=== PATIENT | male | born 1940 ===

== ENCOUNTER 2024-03-30 18:28 | Inpatient (IN) | payer MEDICARE, OTHER ==
[~2024-03-30] VITALS: Ht 165.1 cm; Wt 70.8 kg
[2024-03-30 18:54] LABS: BASOPHILS ABSOLUTE AUTO 0.06 K/mm3 (0.00-0.23); BASOPHILS PERCENT AUTO 0 % (0-2); EOSINOPHILS ABSOLUTE AUTO 0.15 K/mm3 (0.00-0.68); EOSINOPHILS PERCENT AUTO 1 % (0-6); Hematocrit 37.4 % (37.0-53.0); Hemoglobin 12.3 g/dL (13.5-17.5); IMMATURE GRAN ABSOLUTE AUTO 0.05 K/mm3 (0.00-0.10); IMMATURE GRAN PERCENT AUTO 0 % (0-1); LYMPHOCYTES ABSOLUTE AUTO 1.59 K/mm3 (0.84-5.20); LYMPHOCYTES PERCENT AUTO 11 % (21-46); MONOCYTES PERCENT AUTO 5 % (4-13); Mean Corpuscular HGB 29.1 pg (26.0-34.0); Mean Corpuscular HGB Conc 32.9 g/dL (31.5-36.5); Mean Corpuscular Volume 89 fL (80-100); NEUTROPHILS ABSOLUTE AUTO 12.08 K/mm3 (1.96-9.15); NEUTROPHILS PERCENT AUTO 82 % (41-73); Platelet Count 262 K/mm3 (150-400); RDW Coefficient Variation 14.3 % (11.7-14.2); RDW Standard Deviation 45.7 fL (35.1-46.3); Red Blood Cell Count 4.22 M/mm3 (4.30-5.90); White Blood Cell Count 14.73 K/mm3 (4.00-11.30)
[2024-03-30 19:30] LABS: Albumin, Blood 3.9 g/dL (3.4-5.0); Albumin/Globulin Ratio 0.8 (0.8-1.8); Bilirubin, Total 0.4 mg/dL (0.1-1.0); Bun/Creatinine Ratio 27.6 (12.0-20.0); Creatinine, Blood 0.72 mg/dL (0.60-1.20); Globulin, Blood 5.2 g/dL (2.2-4.0); Potassium, Blood 4.2 mmol/L (3.5-5.5); Total Protein, Blood 9.1 g/dL (6.4-8.2)
[2024-03-30] MEDS ORDERED: Aspirin 325 MG Tab PO ONE (20:05)
[2024-03-30] MEDS ORDERED: Ondansetron HCl 2 MG / ML 2ML Vial IV PRN (22:25)
[2024-03-30] MEDS ORDERED: FLU VACC TS2024-25(6MOS UP)/PF 45 MCG/0.5 ML SYRINGE IM ONE (22:25)
[2024-03-30 22:52] LABS: Magnesium, Blood 1.3 mg/dL (1.6-2.4); Thyroid Stimulating Hormone 1.68 uIU/mL (0.360-4.800)
[2024-03-30] MEDS ORDERED: AmLODIPine Besylate 5 MG Tab PO ONE (23:00)
[2024-03-30] MEDS ORDERED: METF500 PO (23:37)
[2024-03-30] MEDS ORDERED: ATOR40TA PO (23:38)
[2024-03-30] MEDS ORDERED: AMLO5 PO (23:38)
[2024-03-30] MEDS ORDERED: PIOG30 PO (23:38)
[2024-03-30] MEDS ORDERED: LISI20 PO (23:38)
[2024-03-30] MEDS ORDERED: Heparin Sodium,Porcine/0.5 NS 500 ML IV SCH (23:45)
[2024-03-30] MEDS ORDERED: Heparin Sodium 5000 Units/ML 1ML MDV IV ONE (23:45)
[2024-03-30 23:52] LABS: Anti-Xa UFH, PHA Monitoring <0.10 IU/mL; International Normalized Ratio 1.03
[2024-03-31] VITALS (19 sets, daily range): BP systolic 109–150; BP diastolic 47–75
[2024-03-31 04:21] LABS: BASOPHILS ABSOLUTE AUTO 0.04 K/mm3 (0.00-0.23); BASOPHILS PERCENT AUTO 0 % (0-2); EOSINOPHILS ABSOLUTE AUTO 0.14 K/mm3 (0.00-0.68); EOSINOPHILS PERCENT AUTO 1 % (0-6); Hematocrit 30.5 % (37.0-53.0); Hemoglobin 10.1 g/dL (13.5-17.5); IMMATURE GRAN ABSOLUTE AUTO 0.04 K/mm3 (0.00-0.10); IMMATURE GRAN PERCENT AUTO 0 % (0-1); LYMPHOCYTES ABSOLUTE AUTO 1.42 K/mm3 (0.84-5.20); LYMPHOCYTES PERCENT AUTO 14 % (21-46); MONOCYTES ABSOLUTE AUTO 0.85 K/mm3 (0.16-1.47); MONOCYTES PERCENT AUTO 8 % (4-13); Mean Corpuscular HGB Conc 33.1 g/dL (31.5-36.5); Mean Corpuscular Volume 88 fL (80-100); Mean Platelet Volume 9.9 fL (9.1-12.4); NEUTROPHILS ABSOLUTE AUTO 7.68 K/mm3 (1.96-9.15); NEUTROPHILS PERCENT AUTO 75 % (41-73); Platelet Count 213 K/mm3 (150-400); RDW Coefficient Variation 14.4 % (11.7-14.2); RDW Standard Deviation 45.4 fL (35.1-46.3); Red Blood Cell Count 3.48 M/mm3 (4.30-5.90); White Blood Cell Count 10.17 K/mm3 (4.00-11.30)
--- NOTE | 2024-03-31 06:01 | NUR ---
SHIFT SUMMARY 83 YR M ADMITTED ON 03/30/24. FULL CODE. AFTER ARRIVAL FROM ED, PT TROPONIN LEVEL JELENA TO 6,135. CALL PLACED TO HOSPITALIST WHO ORDERED A REPEAT LAB FOR 0400. CRITICAL TROPONIN LEVEL OF 13.798 REPORTED TO THIS NURSE FROM LAB @ 0540. HOSPITALIST CALLED AGAIN AND ADVISED OF NEW LEVEL AND THAT PT IS ASYMPTOMATIC. PT WILL CONSULT WITH CARDIOLOGY THIS A.M. HE HAS BEEN NPO SINCE MIDNIGHT. PER TOMOGRAPHY TECHNOLOGIST PT WAS IN AFLUTTER WHEN TELE WAS CONNECTED AT TIME OF ARRIVAL TO THIS FLOOR. PT IS VERY HARD OF HEARING. STAYED IN THE ROOM WITH HIM LAST NIGHT. BOTH ARE TAJIK SPEAKING BUT ARE ABLE TO COMMUNICATE IN HUNGARIAN. WIFES HUNGARIAN IS LIMITED. PT IS A&O X 4 AND IS ABLE TO MAKE HIS NEEDS KNOWN. WILL CONTINUE TO MONITOR. BED IN LOW POSITION AND CALL LIGHT IN REACH.
[2024-03-31] MEDS ORDERED: Magnesium Sulf 2 GM/Water 50ML 50 ML IV ONE (07:20)
[2024-03-31 08:30] LABS: Albumin, Blood 3.3 g/dL (3.4-5.0); Albumin/Globulin Ratio 0.8 (0.8-1.8); Bilirubin, Total 0.7 mg/dL (0.1-1.0); Bun/Creatinine Ratio 24.8 (12.0-20.0); Calcium, Blood 8.4 mg/dL (8.5-10.1); Creatinine, Blood 0.73 mg/dL (0.60-1.20); Globulin, Blood 4.4 g/dL (2.2-4.0); Potassium, Blood 3.8 mmol/L (3.5-5.5); Total Protein, Blood 7.7 g/dL (6.4-8.2)
[2024-03-31] MEDS ORDERED: AmLODIPine Besylate 5 MG Tab PO SCH (09:00)
[2024-03-31] MEDS ORDERED: Atorvastatin 40 MG Tab PO SCH (09:00)
[2024-03-31] MEDS ORDERED: Lisinopril 20 MG Tab PO SCH (09:00)
[2024-03-31] MEDS ORDERED: Rivaroxaban 10 MG Tab PO SCH (09:00)
[2024-03-31] MEDS ORDERED: Mag Sulfate 1 GM/D5% 100ML 100 ML IV STA (10:38)
[2024-03-31] MEDS ORDERED: Insulin Human Lispro 100 Units/ML 3ML Syringe SC SCH ×2 (12:00→21:00)
[2024-03-31] MEDS ORDERED: Verapamil HCL 2.5 MG/ML 2ML Injection ONE (12:30)
[2024-03-31] MEDS ORDERED: Nitroglycerin 2 MG/20 ML BTL ONE (12:31)
[2024-03-31] MEDS ORDERED: Heparin Sodium 1000 Units/ML 10ML MDV ONE ×2 (12:31→13:43)
[2024-03-31] MEDS ORDERED: NS 1,000 ML IV ONE ×2 (12:31→12:37)
[2024-03-31] MEDS ORDERED: NS 250 ML IV ONE (12:31)
[2024-03-31] MEDS ORDERED: FentaNYL Citrate 50 MCG/ML 2 ML Injection ONE (12:37)
[2024-03-31] MEDS ORDERED: Midazolam HCl 1MG / ML 2ML Vial ONE (12:37)
[2024-03-31] MEDS ORDERED: Tirofiban HCL Monohydrate 3.75 MG/15 ML Vial ONE (13:50)
[2024-03-31] MEDS ORDERED: Clopidogrel Bisulfate 300 MG Cap ONE (14:05)
--- NOTE | 2024-03-31 14:10 | NUR ---
TRANSFER NOTE: PT WENT TO THE [facility], GOING TO PCU 5 AFTERWARDS. REPORT GIVEN TO RANDY RANGEL. PT'S MADE AWARE, PERSONAL BELONGINGS TRANSFERRED TO THE ROOM.
--- NOTE | 2024-03-31 14:28 | NUR ---
ARRIVAL TO PCU FROM [facility]: PT ARRIVES VIA HOSPITAL BED POST ANGIO. PT A&OX4. TR BAND IN PLACE TO RIGHT RADIAL INFLATED WITH 12CC. PT DENIES ANY CP, PRESSURE, TIGHTNESS, SOB OR ANY OTHER COMPLAINTS AT THIS TIME. VSS. PT IN A FLUTTER WITH SLOW VENTRICULAR RATE. NOT IN ANY DISTRESS AT THIS TIME. AT BEDSIDE. BED IN LOW POSITION, CALL LIGHT IN REACH. DENIES ANY FURTHER NEEDS OR COMPLAINTS AT THIS TIME. WILL CONTINUE TO CARE FOR PT TILL END OF SHIFT.
--- NOTE | 2024-03-31 18:05 | NUR ---
SHIFT SUMMARY: PT A&OX4. FOLLOWS COMMANDS AND MAKES NEEDS KNOWN TO STAFF. TR BAND REMAINS IN PLACE WITH 12CC OF AIR INFLATED PER CONSERVATION POLICY ANALYST ORDERS. ORDERS TO NOT START DEFLATING B[place]ON FOR 5-6 HOURS POST ANGIO. NO NEW BLEEDING OR HEMATOMA PRESENT. CONSERVATION POLICY ANALYST CONTACTED DUE TO ECTOPY CHANGES. ORDERS TO CONTINUE TO OBSERVE PT. REMAINS IN A SLOW VENTRICULAR A FLUTTER IN THE 30-60'S. REMAINS FREE OF ANY CP, PRESSURE, TIGHTNESS, SOB OR ANY OTHER COMPLAINTS. NO OTHER SIGNIFICANT EVENTS HAPPENED DURING THIS SHIFT. WILL CONTINUE TO CARE FOR PT TILL END OF SHIFT.
--- NOTE | 2024-03-31 20:15 | NUR ---
ASSUMED CARE OF THIS PT AT 1915. PT IS A+O X4, [place]EVEL[place], ABLE TO MAKE NEEDS KNOWN. SPOUSE AT BEDSIDE. PT WENT TO THE [facility] TODAY, R RADIAL ACCESS SITE STILL HAS TR BAND IN PLACE. DELAYED RECOVERY OF TR BAND REQUESTED TO ENSURE ADEQUATE HEALING. SITE IS FREE OF REDDNESS OR HEMATOMA. PT DID REPORT SLIGHT PAIN DUE TO THE PRESSURE IN THE BAND. THE FIRST 2 CC OF AIR REMOVED FROM BAND AT 1935. PT IS ON TELE MONITOR SHOWING ATRIAL FLUTTER AT A LOW RATE OF 49 AT THIS TIME, AT TIMES TOUCHING THE LOW 40s. DAY SHIFT RN REPORTED THIS TO CARDIOLOGY AND INSTRUCTED TO CONTINUE MONITORING THIS PT HR AND RHYTHM. ZOLL PLACED AT BEDSIDE, PT EDUCATED ON PURPOSE OF THIS. PT INSTRUCTED NOT TO GET OUT OF BED W/ OUT THIS ASSISTANCE OF A STAFF MEMBER. URINAL PROVIDED FOR VOIDING, AND BED ALARM ON FOR SAFETY. CALL LIGHT IN REACH.
--- NOTE | 2024-03-31 20:28 | NUR ---
NURSE NOTE 2 CC OF AIR REMVED FROM TR BAND. R RADIAL ACCESS SITE FREE OF REDDNESS OR HEMATOMA. PULSE OX IN PLACE SHOWING 92% OXYGEN SATURATION ON THE MONITOR. PT ON RA. DENIES NEEDS AT THIS TIME.
--- NOTE | 2024-03-31 21:46 | NUR ---
NURSE NOTE 2 MORE CC OF AIR REMOVED FROM TR BAND. R RADIAL SITE FREE OF NEW BLOOD, HEMATOMA OR PAIN. O2 SATURATION AT 94% ON ROOM AIR. PT DENIES CHEST PAIN OR PRESSURE. IN NO ACUTE DISTRESS, DENIES NEEDS AT THIS TIME. CALL LIGHT IN REACH, SPOUSE AT BEDSIDE.
--- NOTE | 2024-03-31 23:53 | NUR ---
NURSE NOTE TR BAND RECOVERED AT 2330. SITE CLEANSED W/ ALCOHOL WIPE. R RADIAL SITE SOFT/ BUT TENDER TO TOUCH. NO BLEEDING NOTED. PULSES IN TACT. SMALL HEMATOMA NOTED AT THE ACCESS SITE ONCE TR BAND WAS REMOVED. SPO2 MONITOR REMAINS IN PLACE SATURATION AT 95%, BREATHING EVEN AND UNLABORED. IN NO ACTUE DISTRESS. REMAINS ON TELE AFLUTTER W/ A SLOW VENTRICULAR RATE OF 50. BED IN LOWEST POSTION, SPOUSE AT BEDSIDE. CALL LIGHT IN REACH.
[2024-04-01] VITALS (9 sets, daily range): BP systolic 100–133; BP diastolic 48–76
[2024-04-01 04:22] LABS: BASOPHILS ABSOLUTE AUTO 0.03 K/mm3 (0.00-0.23); BASOPHILS PERCENT AUTO 0 % (0-2); EOSINOPHILS ABSOLUTE AUTO 0.12 K/mm3 (0.00-0.68); EOSINOPHILS PERCENT AUTO 1 % (0-6); Hematocrit 31.3 % (37.0-53.0); Hemoglobin 10.3 g/dL (13.5-17.5); IMMATURE GRAN ABSOLUTE AUTO 0.03 K/mm3 (0.00-0.10); IMMATURE GRAN PERCENT AUTO 0 % (0-1); LYMPHOCYTES ABSOLUTE AUTO 1.61 K/mm3 (0.84-5.20); LYMPHOCYTES PERCENT AUTO 17 % (21-46); MONOCYTES ABSOLUTE AUTO 0.94 K/mm3 (0.16-1.47); MONOCYTES PERCENT AUTO 10 % (4-13); Mean Corpuscular HGB 29.3 pg (26.0-34.0); Mean Corpuscular HGB Conc 32.9 g/dL (31.5-36.5); Mean Corpuscular Volume 89 fL (80-100); Mean Platelet Volume 10.6 fL (9.1-12.4); NEUTROPHILS ABSOLUTE AUTO 7.03 K/mm3 (1.96-9.15); NEUTROPHILS PERCENT AUTO 72 % (41-73); Platelet Count 227 K/mm3 (150-400); RDW Coefficient Variation 14.4 % (11.7-14.2); RDW Standard Deviation 46.4 fL (35.1-46.3); Red Blood Cell Count 3.52 M/mm3 (4.30-5.90); White Blood Cell Count 9.76 K/mm3 (4.00-11.30)
[2024-04-01 04:44] LABS: Albumin, Blood 3.1 g/dL (3.4-5.0); Albumin/Globulin Ratio 0.8 (0.8-1.8); Bilirubin, Total 0.5 mg/dL (0.1-1.0); Bun/Creatinine Ratio 28.5 (12.0-20.0); Calcium, Blood 8.5 mg/dL (8.5-10.1); Creatinine, Blood 0.91 mg/dL (0.60-1.20); Globulin, Blood 4.1 g/dL (2.2-4.0); Magnesium, Blood 2.1 mg/dL (1.6-2.4); Potassium, Blood 3.9 mmol/L (3.5-5.5); Total Protein, Blood 7.2 g/dL (6.4-8.2)
--- NOTE | 2024-04-01 05:04 | NUR ---
SHIFT SUMMARY PT IS A+O X4, ABLE TO MAKE NEEDS KNOW. REPOSTIONS SELF IN BED. WHILE SLEEPING PATIENT DID HAVE ONE EPISODE OF BOWEL INCONTINENCE HE WAS CLEANED UP IN BED AND PROVIDED NEW LIENS. PT USING URINAL IN BED TO VOID. ZOLL REMAINS AT BED SIDE. PT ON TELE STILL SHOWING A FLUTTER W/ A SLOW VENTRICULAR RATE BETWEEN 40s-50s. PT DENIES CHEST PAIN OR PRESSURE. R RADIAL SITE FREE OF REDNESS/ SWELLING. SMALL HEMATOMA NOTED AT THE ACCESS SITE. SITE NO LONGER TENDER TO THE TOUCH. PULSES PRESENT. CONTINUES BIOX IN PLACE, SATURATION OF 92% AND ABOVE T/O SHIFT ON RA. BREATHING EVEN AND UNLABORED. PERRLA. DENIES ANY PAIN OR ANY KIND. SPOUSE REMAINED AT BEDSIDE ALL NIGHT. BED IN LOWEST POSTION, BED ALARM ON FOR SAFETY. CALL LIGHT IN TREAT WILL CONTINUE TO TREAT AND REPORT TO ONCOMING RN,
[2024-04-01] MEDS ORDERED: Clopidogrel Bisulfate 75 MG Tab PO SCH (09:00)
[2024-04-01] MEDS ORDERED: Aspirin 81 MG Chew PO SCH (09:00)
[2024-04-01] MEDS ORDERED: Apixaban 5 MG Tab PO SCH (11:00)
[2024-04-01] MEDS ORDERED: Aspir 8181 MG PO (12:17)
[2024-04-01] MEDS ORDERED: ELIQUIS5 M2 PO (12:17)
[2024-04-01] MEDS ORDERED: CLOP75 PO (12:17)
--- NOTE | 2024-04-01 14:30 | NUR ---
DISCHARGE NOTE: PT DISCHARGED TO HOME. THIS RN WENT OVER DC INSTRUCTIONS WITH PT AND AND ADDRESSED ANY QUESTIONS OR CONCERNS. PT DC'D TO HOME WITH ARM BOARD IN PLACE. NO NEW BLEEDING OR NEW BRUISING. BOTH IVS WERE REMOVED WITH CATHETER IN PLACE. PT WAS WHEELED OUT VIA WHEEL CHAIR BY ELENI.
== END 2024-04-01 14:17 | disposition home or self-care (01) | DRG 322 ==
LOC: ER 18:28 → MEDS 18:29 → PCU 03-31 13:03
PROVIDERS: Nurse Practitioner Acute Care; Physician Assistant; Student in an Organized Health Care Education/Training Program; ADMIT Student in an Organized Health Care Education/Training Program
PROC: 027034Z Dilation of Coronary Artery, One Artery with Drug-eluting Intraluminal Device, Percutaneous Approach (ICD-10-PCS; principal; 2024-03-31)
PROC: 02C03ZZ Extirpation of Matter from Coronary Artery, One Artery, Percutaneous Approach (ICD-10-PCS; 2024-03-31)
PROC: 4A023N7 Measurement of Cardiac Sampling and Pressure, Left Heart, Percutaneous Approach (ICD-10-PCS; 2024-03-31)
PROC: B2111ZZ Fluoroscopy of Multiple Coronary Arteries using Low Osmolar Contrast (ICD-10-PCS; 2024-03-31)
DX: I21.4 Non-ST elevation (NSTEMI) myocardial infarction (principal); I48.92 Unspecified atrial flutter; I25.10 Atherosclerotic heart disease of native coronary artery without angina pectoris; I10 Essential (primary) hypertension; E78.00 Pure hypercholesterolemia, unspecified; Z28.21 Immunization not carried out because of patient refusal; H91.90 Unspecified hearing loss, unspecified ear; I48.91 Unspecified atrial fibrillation; E83.42 Hypomagnesemia; E11.65 Type 2 diabetes mellitus with hyperglycemia; Z79.899 Other long term (current) drug therapy; Z79.84 Long term (current) use of oral hypoglycemic drugs
CPT/HCPCS: 36415; 71046; 76937; 80053; 82947; 83690; 83735; 84443; 84484; 85025; 85347; 85520; 85610; 85730; 93005; 93010; 93246; 93306; 93458; 96365; 96366; 96375; 99152; 99153; 99285-25; A9270; C1725; C1757; C1769; C1874; C1887; C1894; C9600; G0378; J1644; J2250; J3010; J3246; J3475; J7030; J7050; Q9967

== ENCOUNTER 2024-05-01 20:39 | Emergency (ER) | payer MEDICARE, OTHER ==
[~2024-05-01] VITALS: Ht 165.1 cm; Wt 69.8 kg
[~2024-05-01 20:39] MED LIST: AMLO5 PO; ATOR40TA PO; Aspir 8181 MG PO; CLOP75 PO; ELIQUIS5 M2 PO; LISI20 PO; METF500 PO; PIOG30 PO
[2024-05-01 21:23] LABS: BASOPHILS ABSOLUTE AUTO 0.04 K/mm3 (0.00-0.23); BASOPHILS PERCENT AUTO 0 % (0-2); EOSINOPHILS ABSOLUTE AUTO 0.33 K/mm3 (0.00-0.68); EOSINOPHILS PERCENT AUTO 3 % (0-6); Hematocrit 34.5 % (37.0-53.0); Hemoglobin 10.9 g/dL (13.5-17.5); IMMATURE GRAN ABSOLUTE AUTO 0.03 K/mm3 (0.00-0.10); IMMATURE GRAN PERCENT AUTO 0 % (0-1); LYMPHOCYTES ABSOLUTE AUTO 1.12 K/mm3 (0.84-5.20); LYMPHOCYTES PERCENT AUTO 12 % (21-46); MONOCYTES ABSOLUTE AUTO 0.77 K/mm3 (0.16-1.47); MONOCYTES PERCENT AUTO 8 % (4-13); Mean Corpuscular HGB 27.7 pg (26.0-34.0); Mean Corpuscular HGB Conc 31.6 g/dL (31.5-36.5); Mean Corpuscular Volume 88 fL (80-100); Mean Platelet Volume 9.9 fL (9.1-12.4); NEUTROPHILS ABSOLUTE AUTO 7.46 K/mm3 (1.96-9.15); NEUTROPHILS PERCENT AUTO 77 % (41-73); Platelet Count 228 K/mm3 (150-400); RDW Coefficient Variation 13.8 % (11.7-14.2); RDW Standard Deviation 44.1 fL (35.1-46.3); Red Blood Cell Count 3.93 M/mm3 (4.30-5.90); White Blood Cell Count 9.75 K/mm3 (4.00-11.30)
[2024-05-01 21:44] LABS: Albumin, Blood 3.5 g/dL (3.4-5.0); Albumin/Globulin Ratio 0.8 (0.8-1.8); Bilirubin, Total 0.4 mg/dL (0.1-1.0); Bun/Creatinine Ratio 18.1 (12.0-20.0); Calcium, Blood 8.8 mg/dL (8.5-10.1); Creatinine, Blood 0.78 mg/dL (0.60-1.20); Globulin, Blood 4.5 g/dL (2.2-4.0); Potassium, Blood 3.9 mmol/L (3.5-5.5)
== END 2024-05-01 22:19 | disposition home or self-care (01) ==
LOC: ER 20:39
PROVIDERS: Student in an Organized Health Care Education/Training Program
DX: K13.79 Other lesions of oral mucosa (principal); I10 Essential (primary) hypertension; E11.9 Type 2 diabetes mellitus without complications; E78.5 Hyperlipidemia, unspecified; Z79.01 Long term (current) use of anticoagulants; Z79.84 Long term (current) use of oral hypoglycemic drugs; Z79.02 Long term (current) use of antithrombotics/antiplatelets; Z79.899 Other long term (current) drug therapy
CPT/HCPCS: 80053; 85025; 86850; 86900; 86901; 93005; 93010; 99283-25

== ENCOUNTER 2024-09-27 14:35 | Emergency (ER) | payer OTHER ==
[~2024-09-27] VITALS: Ht 165.1 cm; Wt 69.0 kg
[2024-09-27 15:08] LABS: BASOPHILS ABSOLUTE AUTO 0.04 K/mm3 (0.00-0.23); BASOPHILS PERCENT AUTO 0 % (0-2); EOSINOPHILS ABSOLUTE AUTO 0.18 K/mm3 (0.00-0.68); EOSINOPHILS PERCENT AUTO 2 % (0-6); Hematocrit 35.2 % (37.0-53.0); Hemoglobin 11.1 g/dL (13.5-17.5); IMMATURE GRAN ABSOLUTE AUTO 0.03 K/mm3 (0.00-0.10); IMMATURE GRAN PERCENT AUTO 0 % (0-1); LYMPHOCYTES ABSOLUTE AUTO 1.81 K/mm3 (0.84-5.20); LYMPHOCYTES PERCENT AUTO 19 % (21-46); MONOCYTES ABSOLUTE AUTO 0.62 K/mm3 (0.16-1.47); MONOCYTES PERCENT AUTO 7 % (4-13); Mean Corpuscular HGB Conc 31.5 g/dL (31.5-36.5); Mean Corpuscular Volume 88 fL (80-100); NEUTROPHILS ABSOLUTE AUTO 6.72 K/mm3 (1.96-9.15); NEUTROPHILS PERCENT AUTO 72 % (41-73); NRBC ABSOLUTE 0.00 K/mm3 (0.00-0.02); NRBC Auto 0.0 /100 WBC (0.0-0.2); Platelet Count 227 K/mm3 (150-400); RDW Coefficient Variation 16.6 % (11.7-14.2); RDW Standard Deviation 53.1 fL (35.1-46.3)
[2024-09-27 15:37] LABS: Alanine Aminotransfer (ALT/SGP 23.0 U/L (12-78); Albumin, Blood 3.3 g/dL (3.4-5.0); Albumin/Globulin Ratio 0.7 (0.8-1.8); Anion Gap 10.0 mmol/L (3-11); Aspartate Aminotrans (AST/SGOT 16.0 U/L (12-37); Bilirubin, Total 0.4 mg/dL (0.1-1.0); Blood Urea Nitrogen 30.0 mg/dL (8-24); CO2, Blood 21.0 mmol/L (21-32); Calcium, Blood 8.6 mg/dL (8.5-10.1); Chloride, Blood 110.0 mmol/L (98-108); Creatinine, Blood 0.83 mg/dL (0.60-1.20); Globulin, Blood 4.8 g/dL (2.2-4.0); Glucose, Blood 154.0 mg/dL (70-99); Potassium, Blood 4.7 mmol/L (3.5-5.5); Sodium, Blood 136.0 mmol/L (136-145); Total Protein, Blood 8.1 g/dL (6.4-8.2)
[2024-09-27] MEDS ORDERED: MECL25 PO (18:38)
== END 2024-09-27 18:50 | disposition home or self-care (01) ==
LOC: ER 14:35
PROVIDERS: Student in an Organized Health Care Education/Training Program
DX: R42 Dizziness and giddiness (principal); I10 Essential (primary) hypertension; E78.5 Hyperlipidemia, unspecified; E11.9 Type 2 diabetes mellitus without complications; I48.92 Unspecified atrial flutter; I25.10 Atherosclerotic heart disease of native coronary artery without angina pectoris; Z79.01 Long term (current) use of anticoagulants; Z79.899 Other long term (current) drug therapy; Z79.84 Long term (current) use of oral hypoglycemic drugs; Z95.5 Presence of coronary angioplasty implant and graft
CPT/HCPCS: 71046; 80053; 85025; 93005; 93010; 99284-25; A9270

== ENCOUNTER → 2024-12-16 | Outpatient (CLI) | payer OTHER ==
[~2024-12-16] MED LIST changes: +MECL25 PO
[2024-12-16 13:12] LABS: BASOPHILS ABSOLUTE AUTO 0.06 K/mm3 (0.00-0.23); BASOPHILS PERCENT AUTO 1 % (0-2); EOSINOPHILS ABSOLUTE AUTO 0.27 K/mm3 (0.00-0.68); EOSINOPHILS PERCENT AUTO 3 % (0-6); Hematocrit 34.1 % (37.0-53.0); Hemoglobin 11.1 g/dL (13.5-17.5); IMMATURE GRAN ABSOLUTE AUTO 0.04 K/mm3 (0.00-0.10); IMMATURE GRAN PERCENT AUTO 0 % (0-1); LYMPHOCYTES ABSOLUTE AUTO 1.64 K/mm3 (0.84-5.20); LYMPHOCYTES PERCENT AUTO 17 % (21-46); MONOCYTES ABSOLUTE AUTO 0.69 K/mm3 (0.16-1.47); MONOCYTES PERCENT AUTO 7 % (4-13); Mean Corpuscular HGB Conc 32.6 g/dL (31.5-36.5); Mean Corpuscular Volume 89 fL (80-100); NEUTROPHILS ABSOLUTE AUTO 6.76 K/mm3 (1.96-9.15); NEUTROPHILS PERCENT AUTO 72 % (41-73); NRBC ABSOLUTE 0.00 K/mm3 (0.00-0.02); NRBC Auto 0.0 /100 WBC (0.0-0.2); Platelet Count 243 K/mm3 (150-400); RDW Coefficient Variation 15.2 % (11.7-14.2); RDW Standard Deviation 49.1 fL (35.1-46.3)
[2024-12-16 14:09] LABS: Alanine Aminotransfer (ALT/SGP 25 U/L (12-78); Albumin, Blood 3.6 g/dL (3.4-5.0); Albumin/Globulin Ratio 0.8 (0.8-1.8); Anion Gap 8 mmol/L (3-11); Aspartate Aminotrans (AST/SGOT 18 U/L (12-37); Bilirubin, Total 0.6 mg/dL (0.1-1.0); Blood Urea Nitrogen 16 mg/dL (8-24); CHOL/HDL RATIO 3.9; CO2, Blood 26 mmol/L (21-32); Calcium, Blood 8.8 mg/dL (8.5-10.1); Chloride, Blood 106 mmol/L (98-108); Cholesterol 106 mg/dL (50-200); Creatinine, Blood 0.82 mg/dL (0.60-1.20); Globulin, Blood 4.4 g/dL (2.2-4.0); Glucose, Blood 122 mg/dL (70-99); HDL Cholesterol 27 mg/dL (>39); LDL/HDL RATIO 2.1; Low Density Lipoprotein Chol 55 mg/dL (0-110); Potassium, Blood 4.1 mmol/L (3.5-5.5); Sodium, Blood 136 mmol/L (136-145); Total Protein, Blood 8.0 g/dL (6.4-8.2); Triglycerides 118 mg/dL (30-160); Very Low Density Lipoprot Chol 23 mg/dL (6-32)
== END ==
LOC: LAB 09:05 → LAB SHORT 09:05
PROVIDERS: Nurse Practitioner Family
DX: E78.5 Hyperlipidemia, unspecified (principal); I10 Essential (primary) hypertension
CPT/HCPCS: 80053; 80061; 83036; 85025